=== PATIENT | female | born 1955 | race Hispanic/Latino ===

== ENCOUNTER 2019-10-15 19:56 | Emergency (ER) | payer MEDICARE ==
[~2019-10-15] VITALS: Ht 157.5 cm; Wt 57.2 kg
--- NOTE | 2019-10-15 20:48 | Diagnostic Imaging Report ---
EXAM: CXR 1 [facility] DATE: 10/15/2019 12:00 AM INDICATION: Chest pain ^[id number] ^2038 COMPARISON: None FINDINGS: Lines and tubes: None Heart size normal. No focal pulmonary opacity, pleural effusion or pneumothorax. Upper abdomen unremarkable with no free air. No acute bony abnormality. IMPRESSION: No evidence for acute disease. Signed by: Dr. Houston Hunter M.D. on 10/15/2019 8:45 PM
[2019-10-15] MEDS ORDERED: CYCLOBENZAPRINE5 MG PO (21:23)
[2019-10-15] MEDS ORDERED: CYCLOBENZAPRINE HCL 10 MG TAB PO ONE (21:30)
[2019-10-15] MEDS ORDERED: ASPIRIN 325 MG TAB PO ONE (21:30)
--- OUTSIDE RECORDS SUMMARY | 2019-10-17 14:01 | XMS REPORT ---
[facility] Address Unknown Phone Unavailable Care Team Providers Care Toll Operator Name Role Phone HENNA BECKHAM Unavailable Unavailable Problems This patient has no known problems. Allergies, Adverse Reactions, Alerts This patient has no known allergies or adverse reactions. Medications This patient has no known medications. Encounters Start Date/Time End Date/Time Encounter Type Admission Type Attending [facility] [place] Facility Care Department Encounter ID 2018-08-22 00:00:00 2018-08-22 00:00:00 Outpatient [facility] [id number] 2018-05-18 00:00:00 2018-05-18 00:00:00 Outpatient [facility] [id number] 2018-02-08 13:29:35 2018-02-08 13:29:35 Outpatient [facility] [id number] 2018-02-08 10:33:38 2018-02-08 10:33:38 Outpatient [facility] [id number] 2018-01-30 13:10:11 2018-01-30 13:10:11 Outpatient [facility] [id number] 2018-01-30 12:00:55 2018-01-30 12:00:55 Outpatient [facility] [id number] 2018-01-30 10:40:31 2018-01-30 10:40:31 Outpatient [facility] [id number] 2018-01-30 00:00:00 2018-01-30 00:00:00 Outpatient [facility] [id number] 2018-01-24 00:00:00 2018-01-24 00:00:00 Outpatient [facility] [id number] 2018-01-17 13:22:21 2018-01-17 13:22:21 Outpatient [facility] [id number] 2018-01-17 12:22:58 2018-01-17 12:22:58 Outpatient [facility] [id number] 2017-12-25 10:48:16 2017-12-25 10:48:16 Outpatient [facility] [id number] 2017-12-14 10:07:19 2017-12-14 10:07:19 Outpatient [facility] [id number] 2017-12-11 00:00:00 2017-12-11 00:00:00 Outpatient [facility] [id number] 2017-12-05 08:45:51 2017-12-05 08:45:51 Outpatient [facility] [id number] 2017-12-03 09:30:49 2017-12-03 09:30:49 Outpatient [facility] [id number] 2017-10-10 08:37:57 2017-10-10 08:37:57 Outpatient [facility] [id number] 2017-10-02 09:49:04 2017-10-02 09:49:04 Outpatient [facility] [id number] 2017-09-11 09:45:08 2017-09-11 09:45:08 Outpatient [facility] [id number] 2017-09-06 17:47:24 2017-09-06 17:47:24 Outpatient [facility] [id number] 2017-08-30 00:00:00 2017-08-30 00:00:00 Outpatient [facility] [id number] 2017-08-28 09:28:30 2017-08-28 09:28:30 Outpatient [facility] [id number] 2017-08-23 09:43:51 2017-08-23 09:43:51 Outpatient [facility] [id number] 2017-08-23 08:14:14 2017-08-23 08:14:14 Outpatient [facility] [id number] 2017-08-23 00:00:00 2017-08-23 00:00:00 Outpatient [facility] [id number] 2017-08-16 10:18:02 2017-08-16 10:18:02 Outpatient [facility] [id number] 2017-08-16 00:00:00 2017-08-16 00:00:00 Outpatient [facility] [id number] 2017-08-14 09:56:21 2017-08-14 09:56:21 Outpatient [facility] [id number] 2017-08-07 10:14:45 2017-08-07 10:14:45 Outpatient [facility] [id number] 2017-08-03 12:03:47 2017-08-03 12:03:47 Outpatient [facility] [id number] 2017-08-02 11:03:34 2017-08-02 11:03:34 Outpatient [facility] [id number] 2017-08-02 00:00:00 2017-08-02 00:00:00 Outpatient [facility] [id number] 2017-07-31 09:25:11 2017-07-31 09:25:11 Outpatient [facility] [id number] 2017-07-24 11:19:10 2017-07-24 11:19:10 Outpatient [facility] [id number] 2017-07-24 09:51:11 2017-07-24 09:51:11 Outpatient [facility] [id number] 2017-06-26 00:00:00 2017-06-26 00:00:00 Outpatient [facility] [id number] 2017-06-22 00:00:00 2017-06-22 00:00:00 Outpatient [facility] [id number] 2017-06-21 10:24:51 2017-06-21 10:24:51 Outpatient [facility] [id number] 2017-06-21 10:22:21 2017-06-21 10:22:21 Outpatient [facility] [id number] 2017-06-19 09:48:43 2017-06-19 09:48:43 Outpatient [facility] [id number] 2017-06-12 00:00:00 2017-06-12 00:00:00 Outpatient [facility] [id number] 2017-06-05 13:45:35 2017-06-05 13:45:35 Outpatient [facility] [id number] 2017-05-29 13:51:59 2017-05-29 13:51:59 Outpatient [facility] [id number] 2017-05-23 09:59:44 2017-05-23 09:59:44 Outpatient [facility] [id number] 00:00:00 2017 00:00:00 Outpatient [facility] [id number] 2017-05-21 14:38:47 2017-05-21 14:38:47 Outpatient [facility] [id number] 2017-05-15 14:09:04 2017-05-15 14:09:04 Outpatient [facility] [id number] 2017-05-08 14:00:16 2017-05-08 14:00:16 Outpatient [facility] [id number] 2017-05-03 00:00:00 2017-05-03 00:00:00 Outpatient [facility] [id number] 2017-04-26 08:07:19 2017-04-26 08:07:19 Outpatient [facility] [id number] 2017-04-17 13:58:01 2017-04-17 13:58:01 Outpatient [facility] [id number] 2017-04-10 14:09:53 2017-04-10 14:09:53 Outpatient [facility] [id number] 2017-04-02 09:25:12 2017-04-02 09:25:12 Outpatient [facility] [id number] 2017-03-29 10:21:18 2017-03-29 10:21:18 Outpatient [facility] [id number] 2017-03-29 10:03:50 2017-03-29 10:03:50 Outpatient [facility] [id number] 2017-03-29 00:00:00 2017-03-29 00:00:00 Outpatient [facility] [id number] 2017-03-27 13:54:22 2017-03-27 13:54:22 Outpatient [facility] [id number] 2017-03-20 14:19:45 2017-03-20 14:19:45 Outpatient [facility] [id number] 2017-03-13 14:13:14 2017-03-13 14:13:14 Outpatient [facility] [id number] Results Test Description Test Time Test Comments Text Results Atomic Results Result Comments CXR 1 [facility] 2019-10-15 20:44:00 [place] [address] Patient Name: SYLWIA VELA MR #: [id number] : 1955 Age/Sex: 64/F Req #: [id number] Adm Physician: Ordered by: HENNA BECKHAM MD Report #: [id number] Location: [facility] Room/Bed: Procedure: [id number] HOPD/CXR 1 [facility] Exam Date: 10/15/19 Exam Time: 2038 REPORT STATUS: Signed EXAM: CXR 1 [facility] DATE: 10/15/2019 12:00 AM INDICATION: Chest pain [id number] COMPARISON: None FINDINGS: Lines and tubes: None Heart size normal. No focal pulmonary opacity, pleural effusion or pneumothorax. Upper abdomen unremarkable with no free air. No acute bony abnormality. IMPRESSION: No evidence for acute disease. Signed by: Dr. Jamil Lugo M.D. on 10/15/2019 8:45 PM Dictated By: JAMIL LUGO MD 44 Transcribed By: MAJO on 10/15/192044 COPY TO: HENNA BECKHAM MD
== END 2019-10-15 21:50 | disposition home or self-care (01) ==
LOC: FSED 19:56
DX: R07.89 Other chest pain (principal)
CPT/HCPCS: 71045; 80053; 82553; 84484; 85025; 85379; 93005; 99283